=== PATIENT | female | born 1960 | race Caucasian/White ===

== ENCOUNTER → 2017-03-12 | Day surgery (SDC) | payer OTHER ==
[~2017-03-12] VITALS: Ht 154.9 cm; Wt 112.9 kg
[~2017-03-12] MED LIST: ACETAMINOPHEN 325 MG TAB PO PRN; ATOR1TAB19 PO; AcetaZOLAMIDE 500 MG ER CAP PO ONE; BSS with VANC/TOB/EPI for EYE CASES IR ONE; CEFUROXIME 1MG/0.1ML INTRACAMERAL INJ As Ordered ONE; CELE-19 PO; CYCL10TA PO; CYCLOPENTOLATE 2% OPHTH SOLN 2ML BTL As Ordered ONE; CYCLOPENTOLATE 2% OPHTH SOLN 2ML BTL OS ONE; DRIS50002 PO; GABA-283 PO; HEALON DUET (HEALON 10MG/ML 0.55ML & HEALON ENDOCOAT 30MG/ML 0.85ML) As Ordered ONE; KETOROLAC 0.5% OPHTH SOLN OS ONE; LASI80TA PO; LATA5OPD OU; LIDOCAINE 1% SDV 5 ML VIAL As Ordered ONE; LIDOCAINE 4% INJ 5 ML AMP OU ONE; LR 1,000 ML IV SCH; METF500T PO; MIDAZOLAM INJ 2 MG/2 ML VIAL (J2250) As Ordered ONE; OFLOXACIN 0.3 % (OCUFLOX) OPTH SOL 5ML As Ordered ONE; OFLOXACIN 0.3 % (OCUFLOX) OPTH SOL 5ML OS ONE; OMEP40CA2 PO; PHENYLEPHRINE 2.5% OPHTH SOL 2ML As Ordered ONE; PHENYLEPHRINE 2.5% OPHTH SOL 2ML OS ONE; POVIDONE-IODINE 5% OPHTH PREP SOL 30ML As Ordered ONE; PROA1AER INH; PROPARACAINE 0.5% OPHTH SOL 15ML OS PRN; SERT-138 PO; SUMA100T2 PO; TOPI200T4 PO; TRAZ150T14 PO; TRIMETHOBENZAMIDE 300 MG CAP PO PRN; TROPICAMIDE 1% OPHTH SOLN 2ML As Ordered ONE; TROPICAMIDE 1% OPHTH SOLN 2ML OS ONE; fentaNYL 100 MCG/2 ML INJECTION (J3010) As Ordered ONE
[2017-03-12 13:10] VITALS: BP 138/63
== END | disposition home or self-care (01) ==
LOC: M SDC 10:06
PROVIDERS: ATTEND Ophthalmology
DX: H26.9 Unspecified cataract (principal); H40.9 Unspecified glaucoma; E78.5 Hyperlipidemia, unspecified; E11.9 Type 2 diabetes mellitus without complications; K21.9 Gastro-esophageal reflux disease without esophagitis; R29.898 Other symptoms and signs involving the musculoskeletal system; M17.0 Bilateral primary osteoarthritis of knee; M54.2 Cervicalgia; F41.9 Anxiety disorder, unspecified; F32.9 Major depressive disorder, single episode, unspecified; G43.909 Migraine, unspecified, not intractable, without status migrainosus; E66.9 Obesity, unspecified; J45.909 Unspecified asthma, uncomplicated; R06.83 Snoring; G47.33 Obstructive sleep apnea (adult) (pediatric); Z88.1 Allergy status to other antibiotic agents; Z79.899 Other long term (current) drug therapy; Z79.84 Long term (current) use of oral hypoglycemic drugs; Z90.710 Acquired absence of both cervix and uterus
CPT/HCPCS: 66711; 66984; C1783

== ENCOUNTER → 2017-03-20 | Day surgery (SDC) | payer OTHER ==
[~2017-03-20] VITALS: Ht 154.9 cm; Wt 112.9 kg
[~2017-03-20] MED LIST changes: +ACETYLCHOLINE OPHTH SOLN 1% 2ML (MIOCHOL-E) As Ordered ONE; -CELE-19 PO; +CELE1CAP4 PO; -CYCLOPENTOLATE 2% OPHTH SOLN 2ML BTL As Ordered ONE; +CYCLOPENTOLATE 2% OPHTH SOLN 2ML BTL OD ONE; -CYCLOPENTOLATE 2% OPHTH SOLN 2ML BTL OS ONE; +KETOROLAC 0.5% OPHTH SOLN OD ONE; -KETOROLAC 0.5% OPHTH SOLN OS ONE; -LR 1,000 ML IV SCH; +LR 500 ML IV ONE; -METF500T PO; +METF500T13 PO; -OFLOXACIN 0.3 % (OCUFLOX) OPTH SOL 5ML As Ordered ONE; +OFLOXACIN 0.3 % (OCUFLOX) OPTH SOL 5ML OD ONE; -OFLOXACIN 0.3 % (OCUFLOX) OPTH SOL 5ML OS ONE; -PHENYLEPHRINE 2.5% OPHTH SOL 2ML As Ordered ONE; +PHENYLEPHRINE 2.5% OPHTH SOL 2ML OD ONE; -PHENYLEPHRINE 2.5% OPHTH SOL 2ML OS ONE; -PROA1AER INH; +PROAAER10 INH; +PROPARACAINE 0.5% OPHTH SOL 15ML OD PRN; -PROPARACAINE 0.5% OPHTH SOL 15ML OS PRN; -TOPI200T4 PO; +TOPI200T7 PO; -TRAZ150T14 PO; +TRAZ1TAB14 PO; -TROPICAMIDE 1% OPHTH SOLN 2ML As Ordered ONE; +TROPICAMIDE 1% OPHTH SOLN 2ML OD ONE; -TROPICAMIDE 1% OPHTH SOLN 2ML OS ONE; -fentaNYL 100 MCG/2 ML INJECTION (J3010) As Ordered ONE
[2017-03-20 08:40] VITALS: BP 121/62
--- NOTE | 2017-03-20 16:25 | RO ---
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 PROCEDURE: Phacoemulsification with intraocular lens implantation PCB00, power 19.5 diopters, endocyclophotocoagulation and placement of the iStent [id number]. SURGEON: Dr. Diana Vera RIB PULLER: None. ANESTHESIA: COMPLICATIONS: None. DESCRIPTION OF PROCEDURE: The patient was brought to the operating room, laid in supine position, the right eye was prepped and draped in a sterile fashion for ophthalmic surgery and a lid speculum was placed. [place] incision was made and EndoCoat was injected into the anterior chamber. Temporal clear corneal incision was made with a 2.5 mm keratome and followed by capsulorrhexis and hydrodissection. Phacoemulsification was carried out in a divide and conquer method within the capsular bag followed by aspiration of the cortex. Healon was then placed in the capsular bag and intraocular lens inserted. Healon was then placed in the ciliary sulcus and with the help of the EndoProbe, ciliary process were visualized on the video screen and at the setting of 0.25 milliwatts endocyclophotocoagulation was done 280 degrees and good results were noted by shrinking of the ciliary processes. Healon was then placed into the anterior chamber to visualize the inferonasal trabecular mesh work and with the guidance of the [place] lens under high magnification with the patient's head turned away from the surgeon, the iStent was placed. Good blood reflux was noted. Healon was then aspirated, wound hydrated, cefuroxime given intracamerally and patient returned to the recovery room in stable condition.
== END ==
LOC: M SDC 06:18
PROVIDERS: ATTEND Ophthalmology
DX: H25.9 Unspecified age-related cataract (principal); H40.9 Unspecified glaucoma; E11.9 Type 2 diabetes mellitus without complications; I10 Essential (primary) hypertension; E78.5 Hyperlipidemia, unspecified; J45.909 Unspecified asthma, uncomplicated; F32.9 Major depressive disorder, single episode, unspecified; E66.9 Obesity, unspecified; G47.30 Sleep apnea, unspecified; Z79.899 Other long term (current) drug therapy; Z79.84 Long term (current) use of oral hypoglycemic drugs; Z88.1 Allergy status to other antibiotic agents
CPT/HCPCS: 66183; 66711; 66984; C1783

== ENCOUNTER → 2017-06-01 | Outpatient (REF) | payer OTHER ==
[~2017-06-01] MED LIST changes: -ACETAMINOPHEN 325 MG TAB PO PRN; -ACETYLCHOLINE OPHTH SOLN 1% 2ML (MIOCHOL-E) As Ordered ONE; -AcetaZOLAMIDE 500 MG ER CAP PO ONE; -BSS with VANC/TOB/EPI for EYE CASES IR ONE; -CEFUROXIME 1MG/0.1ML INTRACAMERAL INJ As Ordered ONE; -CYCLOPENTOLATE 2% OPHTH SOLN 2ML BTL OD ONE; -HEALON DUET (HEALON 10MG/ML 0.55ML & HEALON ENDOCOAT 30MG/ML 0.85ML) As Ordered ONE; -KETOROLAC 0.5% OPHTH SOLN OD ONE; -LIDOCAINE 1% SDV 5 ML VIAL As Ordered ONE; -LIDOCAINE 4% INJ 5 ML AMP OU ONE; -LR 500 ML IV ONE; -MIDAZOLAM INJ 2 MG/2 ML VIAL (J2250) As Ordered ONE; -OFLOXACIN 0.3 % (OCUFLOX) OPTH SOL 5ML OD ONE; -PHENYLEPHRINE 2.5% OPHTH SOL 2ML OD ONE; -POVIDONE-IODINE 5% OPHTH PREP SOL 30ML As Ordered ONE; -PROPARACAINE 0.5% OPHTH SOL 15ML OD PRN; -TRIMETHOBENZAMIDE 300 MG CAP PO PRN; -TROPICAMIDE 1% OPHTH SOLN 2ML OD ONE
== END ==
LOC: M SFHCLERA 17:46
PROVIDERS: ATTEND Physician Assistant
DX: K04.7 Periapical abscess without sinus (principal)

== ENCOUNTER → 2019-03-18 | Outpatient (CLI) | payer OTHER ==
[~2019-03-18] MED LIST changes: -DRIS50002 PO; +DRIS50003 PO; -GABA-283 PO; +GABA-845 PO; -LASI80TA PO; +LASI80TA3 PO; +LATA0.0013 OU; -LATA5OPD OU
--- NOTE | 2019-03-18 11:20 | REP ---
Clinical: Visual disturbances. Transient ischemic attack. Technique: Sandoval scale and color Doppler evaluation using linear high frequency transducer Findings: Two-dimensional sandoval scale and color images demonstrate minimal intimal thickening along the bilateral common carotid arteries extending through the bulb and proximal internal/external carotid arteries. Normal arterial lumen with laminar flow and no appreciable narrowing noted. Color Doppler interrogation demonstrates normal arterial wave patterns and velocities with no significant spectral broadening. Normal flow direction is appreciated in the bilateral vertebral arteries. RIGHT (cm/s) LEFT (cm/s) ICA peak systolic velocity 57.7 62.8 ICA diastolic velocity 16.5 25.0 ECA peak systolic velocity 42.4 63.9 CCA peak systolic velocity 47.9 45.6 ICA/CCA ratio 1.20 1.38 Impression: No hemodynamically significant areas of narrowing or stenosis appreciated. Based on set standards narrowing falls within the normal/less than 50% range. Electronically Signed by Christoph Gunderson MD 03/18/2019 11:12 A
== END ==
LOC: M RAD 10:00
PROVIDERS: ATTEND Psychiatry & Neurology Neurology
DX: H53.8 Other visual disturbances (principal)

== ENCOUNTER 2019-03-31 08:36 | Emergency (ER) | payer OTHER ==
[~2019-03-31] VITALS: Ht 154.9 cm; Wt 112.4 kg
[2019-03-31] MEDS ORDERED: DORZ2SOL4 (08:49)
[2019-03-31] MEDS ORDERED: VITA500045 (08:49)
[2019-03-31] MEDS ORDERED: OMEP-221 (08:49)
[2019-03-31] MEDS ORDERED: TRAZ150T90 (08:49)
[2019-03-31] MEDS ORDERED: LEFL1TAB4 (08:49)
[2019-03-31 09:37] LABS: BASO % 0.3 % (0.0-1.0); EOS % 0.2 % (0.0-3.0); HEMATOCRIT 41.3 % (36.0-47.0); HEMOGLOBIN 13.3 g/dl (12.0-15.5); LYMPH # 1.2 10^3/uL (1.5-4.5); LYMPH % 19.7 % (24.0-44.0); MEAN CORPUSCULAR HEMOGLOBIN 29.2 pg (27.0-33.0); MEAN CORPUSCULAR HGB CONC 32.2 g/dl (32.0-36.5); MEAN CORPUSCULAR VOLUME 90.8 fl (80.0-96.0); MONO # 0.5 10^3/uL (0.0-0.8); MONO % 8.2 % (0.0-5.0); NEUTROPHILS # 4.2 10^3/uL (1.8-7.7); NEUTROPHILS % 70.6 % (36.0-66.0); PLATELET COUNT, AUTOMATED 153 10^3/uL (150-450); RED BLOOD COUNT 4.55 10^6/uL (4.00-5.40)
[2019-03-31 09:45] LABS: INR 1.02; PROTHROMBIN TIME 13.1 SECONDS (11.8-14.0)
--- NOTE | 2019-03-31 09:59 | REP ---
RIGHT ANKLE, FOUR VIEWS: Four views of the right ankle are performed. There is no acute fracture or dislocation. The appears to be a mild linear ligamentous calcification adjacent to the medial malleolus. There is mild to moderate inferior calcaneal spurring. Small posterior calcaneal spur is noted. The ankle mortise is anatomic. Electronically Signed by Junaid Sandoval MD 04/01/2019 09:41 A
[2019-03-31 10:05] LABS: ERYTHROCYTE SEDIMENTATION RATE 51 mm/hr (0-30)
--- NOTE | 2019-03-31 10:05 | REP ---
Right lower extremity Duplex Doppler venous ultrasound: Real time compression and duplex Doppler interrogation of the right lower extremity deep venous system is performed. The right common femoral, superficial femoral and popliteal veins are fully compressible with transducer pressure and demonstrate normal spontaneous and phasic flow, without evidence of deep venous thrombosis. Impression: No evidence of deep venous thrombosis of the right lower extremity femoral popliteal venous system. Electronically Signed by Junaid Sandoval MD 03/31/2019 09:56 A
[2019-03-31 10:07] LABS: ALBUMIN 3.5 GM/DL (3.2-5.2); ALT/SGPT 17 U/L (12-78); BILIRUBIN,DIRECT < 0.1 MG/DL (0.0-0.2); BILIRUBIN,TOTAL 0.2 MG/DL (0.2-1.0); C REACTIVE PROTEIN QUANTITATIV 1.55 MG/DL (0.00-0.30); TOTAL PROTEIN 7.5 GM/DL (6.4-8.2)
[2019-03-31] MEDS ORDERED: MOBI4TAB PO (10:43)
[2019-03-31] MEDS ORDERED: KETOROLAC TROMETHAMINE 10 MG TAB PO ONE (10:45)
[2019-03-31 10:49] VITALS: BP 116/71
== END 2019-03-31 10:50 | disposition home or self-care (01) ==
LOC: M ED 09:19
DX: M65.261 Calcific tendinitis, right lower leg (principal); E11.9 Type 2 diabetes mellitus without complications; E78.5 Hyperlipidemia, unspecified; F32.9 Major depressive disorder, single episode, unspecified; F41.9 Anxiety disorder, unspecified; J45.909 Unspecified asthma, uncomplicated; K21.9 Gastro-esophageal reflux disease without esophagitis; Z79.4 Long term (current) use of insulin; Z79.51 Long term (current) use of inhaled steroids; Z79.899 Other long term (current) drug therapy; Z88.1 Allergy status to other antibiotic agents

== ENCOUNTER 2020-09-22 08:23 | Outpatient (RCR) | payer OTHER ==
[~2020-09-22 08:23] MED LIST changes: +CYCL-707 PO; -CYCL10TA PO; +DORZ2SOL4; +LEFL1TAB4; +MOBI4TAB PO; +OMEP-221; -OMEP40CA2 PO; +OMEP40CA97 PO; +TRAZ150T90; +VITA500045
== END 2020-09-23 ==
LOC: M PT 08:23
PROVIDERS: ATTEND Student in an Organized Health Care Education/Training Program
DX: M17.0 Bilateral primary osteoarthritis of knee (principal)

== ENCOUNTER 2020-10-22 08:29 | Outpatient (RCR) | payer OTHER | END 2020-10-24 | disposition home or self-care (01) | LOC: M PT 08:29 | PROVIDERS: ATTEND Student in an Organized Health Care Education/Training Program | DX: M17.0 Bilateral primary osteoarthritis of knee (principal) ==

== ENCOUNTER → 2020-10-28 | Outpatient (CLI) | payer OTHER ==
[2020-10-28 13:08] LABS: HEMOGLOBIN 12.6 g/dl (12.0-15.5); MEAN CORPUSCULAR HEMOGLOBIN 29.2 pg (27.0-33.0); MEAN CORPUSCULAR HGB CONC 33.2 g/dl (32.0-36.5); MEAN CORPUSCULAR VOLUME 88.2 fl (80.0-96.0); PLATELET COUNT, AUTOMATED 174 10^3/uL (150-450); RED BLOOD COUNT 4.31 10^6/uL (4.00-5.40); WHITE BLOOD COUNT 6.6 10^3/uL (4.0-10.0)
[2020-10-28 13:43] LABS: ALBUMIN 3.2 GM/DL (3.2-5.2); ALT/SGPT 16 U/L (12-78); BILIRUBIN,TOTAL 0.3 MG/DL (0.2-1.0); BLOOD UREA NITROGEN 18 MG/DL (7-18); CALCIUM LEVEL 8.6 MG/DL (8.8-10.2); CARBON DIOXIDE LEVEL 25 MEQ/L (21-32); CHLORIDE LEVEL 110 MEQ/L (98-107); CHOLESTEROL LEVEL 173 MG/DL (<200); CHOLESTEROL RISK RATIO 3.035 (<5); CREATININE FOR GFR 0.91 MG/DL (0.55-1.30); GLOMERULAR FILTRATION RATE > 60.0 (>45); GLUCOSE, FASTING 117 MG/DL (70-100); HDL CHOLESTEROL 57 MG/DL (>40); LDL CHOLESTEROL 95 MG/DL (<100); NON-HDL-C 116 MG/DL; SODIUM LEVEL 141 MEQ/L (136-145); TOTAL PROTEIN 6.8 GM/DL (6.4-8.2); TRIGLYCERIDES LEVEL 103 MG/DL (<150)
[2020-10-28 14:13] LABS: HEMOGLOBIN A1c 6.5 %
== END ==
LOC: M LAB 12:33
PROVIDERS: ATTEND Family Medicine
DX: E11.9 Type 2 diabetes mellitus without complications (principal)

== ENCOUNTER 2020-11-19 08:00 | Outpatient (RCR) | payer OTHER | END 2020-11-21 | LOC: M PT 08:00 | PROVIDERS: ATTEND Student in an Organized Health Care Education/Training Program | DX: M17.0 Bilateral primary osteoarthritis of knee (principal) ==

== ENCOUNTER → 2022-04-27 | Outpatient (REF) | payer OTHER ==
[~2022-04-27] MED LIST changes: +GABA-283 PO; -GABA-845 PO; -OMEP-221; +OMEP40CA4 PO; +OMEP40CA5; -OMEP40CA97 PO
[2022-04-27 18:26] LABS: MAGNESIUM LEVEL 2.5 MG/DL (1.8-2.4); PHOSPHORUS LEVEL 3.1 MG/DL (2.5-4.9)
[2022-04-27 18:46] LABS: TOTAL 25(OH) VITAMIN D 14.5 NG/ML (30.0-100.0)
== END ==
LOC: M SFHCRHEU 10:47
PROVIDERS: ATTEND Internal Medicine
DX: M79.10 Myalgia, unspecified site (principal); J34.89 Other specified disorders of nose and nasal sinuses

== ENCOUNTER → 2022-06-14 | Outpatient (CLI) | payer OTHER | LOC: M RAD 09:40 | PROVIDERS: ATTEND Internal Medicine | DX: M25.511 Pain in right shoulder (principal); M25.512 Pain in left shoulder ==

== ENCOUNTER → 2022-10-11 | Outpatient (CLI) | payer OTHER | LOC: M RAD 09:51 | PROVIDERS: ATTEND Family Medicine | DX: M79.645 Pain in left finger(s) (principal) ==

== ENCOUNTER → 2022-11-16 | Outpatient (REF) | payer OTHER ==
[2022-11-16 16:40] LABS: TOTAL 25(OH) VITAMIN D 22.9 NG/ML (20.0-100.0)
== END ==
LOC: M SFHCRHEU 13:06
PROVIDERS: ATTEND Internal Medicine
DX: E61.1 Iron deficiency (principal); E55.9 Vitamin D deficiency, unspecified; E53.8 Deficiency of other specified B group vitamins

== ENCOUNTER 2022-12-20 10:00 | Outpatient (RCR) | payer OTHER | END 2022-12-22 | LOC: M PT 10:00 | PROVIDERS: ATTEND Internal Medicine | DX: M19.012 Primary osteoarthritis, left shoulder (principal); M19.011 Primary osteoarthritis, right shoulder; M75.81 Other shoulder lesions, right shoulder ==

== ENCOUNTER 2022-12-27 14:52 | Outpatient (RCR) | payer OTHER | END 2023-01-21 | LOC: M PT 14:52 | PROVIDERS: ATTEND Internal Medicine | DX: M19.012 Primary osteoarthritis, left shoulder (principal); M19.011 Primary osteoarthritis, right shoulder; M75.81 Other shoulder lesions, right shoulder ==

== ENCOUNTER 2023-03-05 09:32 | Emergency (ER) | payer OTHER ==
[~2023-03-05] VITALS: Ht 154.9 cm; Wt 125.3 kg
[2023-03-05] MEDS ORDERED: NS 1,000 ML IV ONE (11:30)
[2023-03-05 12:19] LABS: BASO % 0.3 % (0.0-1.0); HEMATOCRIT 32.4 % (36.0-47.0); HEMOGLOBIN 11.3 g/dl (12.0-15.5); LYMPH % 26.6 % (24.0-44.0); MEAN CORPUSCULAR HGB CONC 34.9 g/dl (32.0-36.5); MEAN CORPUSCULAR VOLUME 88.8 fl (80.0-96.0); MONO # 0.3 10^3/uL (0.0-0.8); MONO % 9.5 % (2.0-8.0); NEUTROPHILS # 2.2 10^3/uL (1.5-8.5); NEUTROPHILS % 61.9 % (36.0-66.0); PLATELET COUNT, AUTOMATED 164 10^3/uL (150-450); RED BLOOD COUNT 3.65 10^6/uL (4.00-5.40); WHITE BLOOD COUNT 3.6 10^3/uL (4.0-10.0)
[2023-03-05 12:45] LABS: MAGNESIUM LEVEL 1.9 MG/DL (1.8-2.4)
[2023-03-05 12:47] LABS: ALBUMIN 3.3 G/DL (3.2-5.2); BILIRUBIN,DIRECT 0.2 MG/DL (<0.4); BILIRUBIN,TOTAL 0.4 MG/DL (0.3-1.2); TOTAL PROTEIN 6.6 G/DL (5.7-8.2)
[2023-03-05 13:40] VITALS: TEMP 98
[2023-03-05 17:33] VITALS: O2SAT 98
[2023-03-05 18:35] VITALS: BP 163/90; O2SAT 98
== END 2023-03-05 18:45 | disposition home or self-care (01) ==
LOC: M ED 09:32
DX: U07.1 COVID-19 (principal); R00.1 Bradycardia, unspecified; E11.9 Type 2 diabetes mellitus without complications; I10 Essential (primary) hypertension; J45.909 Unspecified asthma, uncomplicated; G47.33 Obstructive sleep apnea (adult) (pediatric); Z88.1 Allergy status to other antibiotic agents; Z79.899 Other long term (current) drug therapy; Z79.84 Long term (current) use of oral hypoglycemic drugs; Z79.51 Long term (current) use of inhaled steroids

== ENCOUNTER → 2023-06-06 | Outpatient (CLI) | payer MEDICARE, OTHER ==
[~2023-06-06] MED LIST changes: -GABA-283 PO; +GABA-284 PO
[2023-06-06 11:20] LABS: BASO % 0.5 % (0.0-1.0); EOS % 0.5 % (0.0-3.0); HEMATOCRIT 37.2 % (36.0-47.0); HEMOGLOBIN 11.9 g/dl (12.0-15.5); LYMPH # 0.9 10^3/uL (1.5-5.0); LYMPH % 19.7 % (24.0-44.0); MEAN CORPUSCULAR HEMOGLOBIN 28.9 pg (27.0-33.0); MEAN CORPUSCULAR VOLUME 90.3 fl (80.0-96.0); MONO # 0.5 10^3/uL (0.0-0.8); MONO % 10.4 % (2.0-8.0); PLATELET COUNT, AUTOMATED 116 10^3/uL (150-450); RED BLOOD COUNT 4.12 10^6/uL (4.00-5.40); WHITE BLOOD COUNT 4.4 10^3/uL (4.0-10.0)
[2023-06-06 11:29] LABS: ALBUMIN 3.5 G/DL (3.2-5.2); BILIRUBIN,TOTAL 0.3 MG/DL (0.3-1.2); CALCIUM LEVEL 8.5 MG/DL (8.3-10.6); CREATININE FOR GFR 1.6 MG/DL (0.55-1.30); GLOMERULAR FILTRATION RATE 34.5 (>45); POTASSIUM SERUM 4.4 MMOL/L (3.5-5.1); TOTAL PROTEIN 7.2 G/DL (5.7-8.2)
== END ==
LOC: M LAB 10:03
PROVIDERS: ATTEND Psychiatry & Neurology Neurology
DX: R51.9 Headache, unspecified (principal)

== ENCOUNTER → 2023-06-06 | Outpatient (CLI) | payer MEDICARE, OTHER ==
[2023-06-06 11:25] LABS: FREE T4 0.77 NG/DL (0.89-1.76)
[2023-06-06 11:26] LABS: FREE T3 2.6 PG/ML (2.3-4.2); THYROID STIMULATING HORMONE 8.305 uIU/ML (0.55-4.78)
== END ==
LOC: M LAB 10:02
PROVIDERS: ATTEND Family Medicine
DX: E07.9 Disorder of thyroid, unspecified (principal)

== ENCOUNTER → 2023-06-14 | Outpatient (REF) | payer MEDICARE ==
[2023-06-14 18:02] LABS: APPEARANCE, URINE HAZY (CLEAR); BACTERIA, URINE AUTO 1+ (NEGATIVE); BILIRUBIN, URINE AUTO NEGATIVE (NEGATIVE); BLOOD, URINE BLOOD NEGATIVE (NEGATIVE); COLOR, URINE YELLOW (YELLOW); GLUCOSE, URINE (UA) AUTO NEGATIVE (NEGATIVE); KETONE, URINE AUTO NEGATIVE (NEGATIVE); LEUKOCYTE ESTERASE, URINE AUTO TRACE (NEGATIVE); MUCUS, URINE SMALL (NEGATIVE); NITRITE, URINE AUTO POSITIVE (NEGATIVE); PROTEIN, URINE AUTO 1+ mg/dL (NEGATIVE); RBC, URINE AUTO 1 /HPF (0-3); SPECIFIC GRAVITY URINE AUTO 1.023 (1.002-1.035); SQUAMOUS EPITHELIAL CELL UR AU 2 /HPF (0-6); UROBILINOGEN, URINE AUTO 0.2 mg/dL (0.0-2.0); WBC, URINE AUTO 12 /HPF (0-3)
[2023-06-14 18:16] LABS: TOTAL PROTEIN,RANDOM URINE 29.5 MG/DL (0.0-14.0)
[2023-06-14 18:19] LABS: CREATININE,RANDOM URINE 212.8 MG/DL
[2023-06-14 18:25] LABS: C REACTIVE PROTEIN QUANTITATIV 1.8 MG/DL (<1.0)
[2023-06-14 18:26] LABS: TOTAL 25(OH) VITAMIN D 23.9 NG/ML (20.0-100.0)
[2023-06-14 18:30] LABS: COMPLEMENT C3 191.8 MG/DL (90.0-170.0); COMPLEMENT C4 40.9 MG/DL (12-36)
== END ==
LOC: M SFHCRHEU 14:17
PROVIDERS: ATTEND Internal Medicine
DX: E55.9 Vitamin D deficiency, unspecified (principal); E61.1 Iron deficiency; E53.8 Deficiency of other specified B group vitamins; M35.00 Sjogren syndrome, unspecified; Z79.899 Other long term (current) drug therapy

== ENCOUNTER → 2023-08-07 | Outpatient (CLI) | payer MEDICARE ==
[2023-08-07 11:17] LABS: BASO % 0.3 % (0.0-1.0); EOS % 0.2 % (0.0-3.0); HEMATOCRIT 35.7 % (36.0-47.0); HEMOGLOBIN 12.3 g/dl (12.0-15.5); LYMPH # 1.6 10^3/uL (1.5-5.0); LYMPH % 26.7 % (24.0-44.0); MEAN CORPUSCULAR HGB CONC 34.5 g/dl (32.0-36.5); MONO # 0.5 10^3/uL (0.0-0.8); NEUTROPHILS # 3.9 10^3/uL (1.5-8.5); NEUTROPHILS % 64.1 % (36.0-66.0); PLATELET COUNT, AUTOMATED 141 10^3/uL (150-450); RED BLOOD COUNT 3.84 10^6/uL (4.00-5.40)
[2023-08-07 11:41] LABS: ALBUMIN 3.6 G/DL (3.2-5.2); BILIRUBIN,TOTAL 0.3 MG/DL (0.3-1.2); CALCIUM LEVEL 8.4 MG/DL (8.3-10.6); CREATININE FOR GFR 1.01 MG/DL (0.55-1.30); GLOMERULAR FILTRATION RATE 58.6 (>45); POTASSIUM SERUM 4.3 MMOL/L (3.5-5.1); TOTAL PROTEIN 7.3 G/DL (5.7-8.2)
[2023-08-07 11:43] LABS: FREE T4 0.96 NG/DL (0.89-1.76); THYROID STIMULATING HORMONE 3.829 uIU/ML (0.55-4.78)
[2023-08-07 12:45] LABS: FREE T3 2.7 PG/ML (2.3-4.2)
== END ==
LOC: M LAB 10:01
PROVIDERS: ATTEND Family Medicine
DX: E03.9 Hypothyroidism, unspecified (principal); I10 Essential (primary) hypertension

== ENCOUNTER → 2023-08-07 | Outpatient (CLI) | payer MEDICARE | LOC: M RAD 10:03 | PROVIDERS: ATTEND Internal Medicine | DX: M54.9 Dorsalgia, unspecified (principal); M17.0 Bilateral primary osteoarthritis of knee ==

== ENCOUNTER → 2023-09-10 | Outpatient (CLI) | payer MEDICARE | LOC: M WHC 08:42 | PROVIDERS: ATTEND Family Medicine | DX: Z12.31 Encounter for screening mammogram for malignant neoplasm of breast (principal) ==

== ENCOUNTER → 2024-03-03 | Outpatient (REF) | payer MEDICARE ==
[~2024-03-03] MED LIST changes: -LEFL1TAB4; +LEFL20TA15
[2024-03-03 16:52] LABS: FERRITIN 66.9 NG/ML (7.3-270.7); TOTAL 25(OH) VITAMIN D 25.7 NG/ML (20.0-100.0)
[2024-03-03 17:15] LABS: BASO % 0.4 % (0.0-1.0); EOS % 0.1 % (0.0-3.0); HEMATOCRIT 40.6 % (36.0-47.0); HEMOGLOBIN 13.3 g/dl (12.0-15.5); LYMPH # 2.2 10^3/uL (1.5-5.0); LYMPH % 30.1 % (24.0-44.0); MEAN CORPUSCULAR HEMOGLOBIN 29.6 pg (27.0-33.0); MEAN CORPUSCULAR VOLUME 90.4 fl (80.0-96.0); MONO # 0.6 10^3/uL (0.0-0.8); MONO % 8.1 % (2.0-8.0); NEUTROPHILS # 4.5 10^3/uL (1.5-8.5); NEUTROPHILS % 60.8 % (36.0-66.0); PLATELET COUNT, AUTOMATED 171 10^3/uL (150-450); RED BLOOD COUNT 4.49 10^6/uL (4.00-5.40); WHITE BLOOD COUNT 7.4 10^3/uL (4.0-10.0)
[2024-03-03 17:16] LABS: MEAN CORPUSCULAR HGB CONC 32.8 g/dl (32.0-36.5)
== END ==
LOC: M SFHCRHEU 13:52
PROVIDERS: ATTEND Internal Medicine
DX: E61.1 Iron deficiency (principal); E55.9 Vitamin D deficiency, unspecified

== ENCOUNTER → 2024-12-24 | Outpatient (CLI) | payer MEDICARE | LOC: M RAD 07:53 | PROVIDERS: ATTEND Pain Medicine Interventional Pain Medicine | DX: M54.16 Radiculopathy, lumbar region (principal) ==

== ENCOUNTER → 2025-01-13 | Outpatient (REF) | payer MEDICARE ==
[2025-01-13 15:32] LABS: BASO % 0.4 % (0.0-1.0); EOS % 0.2 % (0.0-3.0); HEMATOCRIT 34.9 % (36.0-47.0); HEMOGLOBIN 12.6 g/dl (12.0-15.5); LYMPH # 1.7 10^3/uL (1.5-5.0); LYMPH % 30.2 % (24.0-44.0); MEAN CORPUSCULAR HEMOGLOBIN 34.2 pg (27.0-33.0); MEAN CORPUSCULAR HGB CONC 36.1 g/dl (32.0-36.5); MEAN CORPUSCULAR VOLUME 94.8 fl (80.0-96.0); MONO # 0.4 10^3/uL (0.0-0.8); MONO % 7.5 % (2.0-8.0); NEUTROPHILS # 3.4 10^3/uL (1.5-8.5); NEUTROPHILS % 61.2 % (36.0-66.0); PLATELET COUNT, AUTOMATED 160 10^3/uL (150-450); RED BLOOD COUNT 3.68 10^6/uL (4.00-5.40); WHITE BLOOD COUNT 5.6 10^3/uL (4.0-10.0)
[2025-01-13 15:33] LABS: APPEARANCE, URINE HAZY (CLEAR); BACTERIA, URINE AUTO 3+ (NEGATIVE); BILIRUBIN, URINE AUTO NEGATIVE (NEGATIVE); BLOOD, URINE BLOOD 1+ (NEGATIVE); COLOR, URINE YELLOW (YELLOW); GLUCOSE, URINE (UA) AUTO 3+ mg/dL (NEGATIVE); KETONE, URINE AUTO NEGATIVE (NEGATIVE); LEUKOCYTE ESTERASE, URINE AUTO TRACE (NEGATIVE); MUCUS, URINE SMALL (NEGATIVE); NITRITE, URINE AUTO POSITIVE (NEGATIVE); PROTEIN, URINE AUTO 1+ mg/dL (NEGATIVE); RBC, URINE AUTO 32 /HPF (0-3); SPECIFIC GRAVITY URINE AUTO 1.021 (1.002-1.035); SQUAMOUS EPITHELIAL CELL UR AU 3 /HPF (0-6); UROBILINOGEN, URINE AUTO 0.2 mg/dL (0.0-2.0); WBC, URINE AUTO 64 /HPF (0-3); YEAST LIKE CELL URINE AUTO SMALL
[2025-01-13 15:36] LABS: ALBUMIN 3.7 G/DL (3.2-5.2); BILIRUBIN,DIRECT 0.1 MG/DL (<0.4); BILIRUBIN,TOTAL 0.3 MG/DL (0.3-1.2); C REACTIVE PROTEIN QUANTITATIV 1.32 MG/DL (<1.0); CALCIUM LEVEL 8.7 MG/DL (8.3-10.6); COMPLEMENT C3 205.7 MG/DL (90.0-170.0); CREATININE FOR GFR 1.25 MG/DL (0.55-1.30); GLOMERULAR FILTRATION RATE 47.5 (>45); POTASSIUM SERUM 4.1 MMOL/L (3.5-5.1); TOTAL PROTEIN 7.5 G/DL (5.7-8.2)
[2025-01-13 15:38] LABS: TOTAL 25(OH) VITAMIN D 34.2 NG/ML (20.0-100.0)
[2025-01-13 15:41] LABS: ERYTHROCYTE SEDIMENTATION RATE 36 mm/hr (0-30)
[2025-01-13 15:42] LABS: TOTAL PROTEIN,RANDOM URINE 36.4 MG/DL (0.0-14.0)
[2025-01-13 15:47] LABS: CREATININE,RANDOM URINE 113.6 MG/DL
== END ==
LOC: M SFHCRHEU 11:52
PROVIDERS: ATTEND Internal Medicine
DX: M35.00 Sjogren syndrome, unspecified (principal); E55.9 Vitamin D deficiency, unspecified

== ENCOUNTER 2025-01-20 10:18 | Outpatient (RCR) | payer MEDICARE ==
[~2025-01-20 10:18] MED LIST changes: +TOPI-14 PO; -TOPI200T7 PO
== END 2025-01-21 ==
LOC: M PT 10:18
PROVIDERS: ATTEND Pain Medicine Interventional Pain Medicine
DX: M54.16 Radiculopathy, lumbar region (principal)

== ENCOUNTER → 2025-07-13 | Outpatient (REF) | payer MEDICARE ==
[2025-07-13 15:47] LABS: CALCIUM LEVEL 8.8 MG/DL (8.3-10.6); CARBON DIOXIDE LEVEL 25.0 MMOL/L (20-31); CHLORIDE LEVEL 106.0 MMOL/L (98-107); CREATININE FOR GFR 1.29 MG/DL (0.55-1.30); GLOMERULAR FILTRATION RATE 45.5 (>45); POTASSIUM SERUM 4.4 MMOL/L (3.5-5.1); SODIUM LEVEL 140.0 MMOL/L (136-145)
[2025-07-13 15:50] LABS: TOTAL 25(OH) VITAMIN D 21.6 NG/ML (20.0-100.0)
== END ==
LOC: M SFHCRHEU 12:04
PROVIDERS: ATTEND Internal Medicine
DX: R94.4 Abnormal results of kidney function studies (principal); E55.9 Vitamin D deficiency, unspecified

== ENCOUNTER → 2025-07-31 | Outpatient (CLI) | payer MEDICARE | LOC: M RAD 10:35 | PROVIDERS: ATTEND Internal Medicine | DX: M75.82 Other shoulder lesions, left shoulder (principal); M19.012 Primary osteoarthritis, left shoulder ==

== ENCOUNTER → 2025-09-15 | Outpatient (CLI) | payer MEDICARE ==
[2025-09-15 10:53] LABS: CALCIUM LEVEL 8.2 MG/DL (8.3-10.6); CARBON DIOXIDE LEVEL 27.0 MMOL/L (20-31); CHLORIDE LEVEL 109.0 MMOL/L (98-107); CREATININE FOR GFR 1.13 MG/DL (0.55-1.30); GLOMERULAR FILTRATION RATE 53.3 (>45); POTASSIUM SERUM 4.3 MMOL/L (3.5-5.1); SODIUM LEVEL 141.0 MMOL/L (136-145)
== END ==
LOC: M LAB 09:55
PROVIDERS: ATTEND Family Medicine
DX: E11.69 Type 2 diabetes mellitus with other specified complication (principal)